=== PATIENT | male | born 1970 | race Caucasian/White ===

== ENCOUNTER 2017-02-07 11:29 | Emergency (ER) | payer SELFPAY ==
[~2017-02-07] VITALS: Ht 160 cm; Wt 76.2 kg
[~2017-02-07 11:29] MED LIST: ASPIRIN EC325 MG PO; CEFTIN500 MG PO; CELEBREX PO; COMBIVENT200 INHALA IH; Combivent IH; DUONEB 2.5-0.5 M3 ML IH; Ecotrin PO; FENOFIBRATE160 M1 PO; FLEXERIL10 MG PO; FLOVENT 11120 INHALA; GLUCOPHAGE1000 MG PO; LEVAQUIN750 MG PO; LEVEMIR FL100 UNIT/1 SC; MEDROL DOSEPAK4 MG PO; METFORMIN HCL1000 MG PO; METFORMIN HCL500 MG PO; MOTRIN600 MG PO; NAPROSYN500 MG PO; NAPROXEN500 MG PO; NICOTINE PATCH1 EAC2 TD; NOHOMEMEDS; PREDNISONE20 MG PO; PROAIR HFA8.5 GM; PROVENTIL17 G1 IH; SPIRIVA1 INHALATI IH; ULTRAM50 MG PO; [UNRECOGNIZED DRUG - REMARK]; [UNRECOGNIZED DRUG - REMARK]; [UNRECOGNIZED DRUG - REMARK]; [UNRECOGNIZED DRUG - REMARK]; [UNRECOGNIZED DRUG - REMARK]
[2017-02-07 12:12] LABS: HEMATOCRIT 52.3 % (38.0-50.0); MCH 28.8 PG (29.0-34.0); MCV 84.6 FL (86-99); MEAN PLAT.VOLUME 8.9 uM^3 (9.0-12.4); PLATELET COUNT 322 K/uL (156-360); RBC DIS.WIDTH-CV 14.1 % (11.8-14.6); RBC DIS.WIDTH-SD 42.6 % (39-53); RED BLOOD COUNT 6.18 M/uL (4.00-5.50); WHITE BLOOD COUNT 10.7 K/uL (4.1-10.2)
[2017-02-07 12:25] LABS: CHLORIDE 98 mEq/L (99-109); POTASSIUM 4.2 mEq/L (3.7-5.4); SODIUM 136 mEq/L (136-147)
[2017-02-07 12:27] LABS: GLUCOSE 199 mg/dL (70-99)
[2017-02-07 12:28] LABS: ANION GAP 9 MEQ/L (2-14)
[2017-02-07 12:29] LABS: TOTAL BILIRUBIN 0.5 mg/dL (0.0-1.0)
[2017-02-07 12:31] LABS: ALKALINE PHOSPHATASE 72 IU/L (3-129); GFR ESTIMATE (CALCULATED) > 59 mL/min/ (58.99-99999)
[2017-02-07 12:32] LABS: UREA NITROGEN (BUN) 11 mg/dL (9-23)
[2017-02-07 14:50] LABS: ADD MIUA? NO; BILIRUBIN NEGATIVE; BLOOD NEGATIVE; COLOR YELLOW ((YELLOW)); GLUCOSE (STRIP) NEGATIVE; KETONES NEGATIVE; LEUKOCYTES NEGATIVE; NITRITE NEGATIVE; PROTEIN (STRIP) 30; SPECIFIC GRAVITY 1.027 (1.000-1.030); UCUL ADDED? NO; UROBILINOGEN 0.2 MG/DL (0.2-1.0)
[2017-02-07] MEDS ORDERED: TESSALON200 MG PO (15:40)
[2017-02-07] MEDS ORDERED: PROAIR HFA8.5 GM IH (15:40)
[2017-02-07] MEDS ORDERED: ZOFRAN ODT4 MG PO (15:40)
[2017-02-07 15:51] VITALS: BP 130/67
== END 2017-02-07 15:52 | disposition home or self-care (01) ==
LOC: EME 11:29
DX: B34.9 Viral infection, unspecified (principal); J44.9 Chronic obstructive pulmonary disease, unspecified; T50.996A Underdosing of other drugs, medicaments and biological substances, initial encounter; Z91.14 Patient's other noncompliance with medication regimen; F17.200 Nicotine dependence, unspecified, uncomplicated; E11.9 Type 2 diabetes mellitus without complications; Z79.84 Long term (current) use of oral hypoglycemic drugs; I11.0 Hypertensive heart disease with heart failure; I50.9 Heart failure, unspecified; I25.2 Old myocardial infarction
CPT/HCPCS: 71020; 80053; 81003; 85027; 94640; 99281; 99285

== ENCOUNTER 2017-09-13 11:13 | Emergency (ER) | payer OTHER ==
[~2017-09-13] VITALS: Ht 160 cm; Wt 73.9 kg
[~2017-09-13 11:13] MED LIST changes: +PROAIR HFA8.5 GM IH; +TESSALON200 MG PO; +ZOFRAN ODT4 MG PO
[2017-09-13] MEDS ORDERED: MOTRIN600 MG PO (13:15)
[2017-09-13 14:07] VITALS: BP 123/96
== END 2017-09-13 14:09 | disposition home or self-care (01) ==
LOC: EME 11:13
DX: S93.401A Sprain of unspecified ligament of right ankle, initial encounter (principal); X50.1XXA Overexertion from prolonged static or awkward postures, initial encounter; W10.1XXA Fall (on)(from) sidewalk curb, initial encounter; F17.200 Nicotine dependence, unspecified, uncomplicated
CPT/HCPCS: 73610; 99281; 99283